=== PATIENT | female | born 1950 | race African-American/Black ===

== ENCOUNTER → 2019-06-12 | Outpatient (CLI) | payer MEDICARE, OTHER ==
[~2019-06-12] MED LIST: FLUP10TA11; HALO2TAB; LORA0.5T11; OLAN10TA23 PO; OLAN5TAB26 PO; SERT100T PO; SERT50TA PO; TEMA15CA91 PO
[2019-06-12 09:04] LABS: Basophils # (auto) 0 uL; Basophils % (auto) 0.7 % (0.0-2.0); Eosinophils # (auto) 0.1 uL; Eosinophils % (auto) 1.3 % (0.0-7.0); Hematocrit 41.1 % (36.0-46.0); Hemoglobin 13.6 g/dL (12.2-16.2); Lymphocytes # (auto) 3.1 uL; Lymphocytes % (auto) 48.7 % (10.0-50.0); Mean Corpuscular Hemoglobin 30.3 pg (28.0-32.0); Monocytes # (auto) 0.7 uL; Monocytes % (auto) 10.3 % (0.0-12.0); Neutrophils # (auto) 2.5 uL; Nucleated Red Blood Cells % 0.1 %; Platelet Count (auto) 239 10^3/uL (140-450); Red Blood Cells 4.47 10^6/uL (4.0-5.20); White Blood Cell 6.4 10^3/uL (4.4-10.8)
[2019-06-12 13:28] LABS: Potassium 4.1 mmol/L (3.5-5.1)
[2019-06-12 13:38] LABS: BUN/Creatinine Ratio 14.7; Calcium 8.9 mg/dL (8.5-10.1)
[2019-06-12 13:44] LABS: Albumin 3.4 g/dL (3.4-5.0); Bilirubin, Total 0.3 mg/dL (0.2-1.0); Total Protein 7.2 g/dL (6.4-8.2)
== END | disposition home or self-care (01) ==
LOC: LAB 08:16
PROVIDERS: ATTEND Physician Assistant
DX: F20.9 Schizophrenia, unspecified (principal); J40 Bronchitis, not specified as acute or chronic; Z87.898 Personal history of other specified conditions; R79.89 Other specified abnormal findings of blood chemistry
CPT/HCPCS: 36415; 80053; 80061; 85025

== ENCOUNTER → 2020-02-21 | Emergency (ER) | payer MEDICARE, OTHER ==
[~2020-02-21] VITALS: Ht 154.9 cm; Wt 65.8 kg
[~2020-02-21] MED LIST changes: +AMPI500C8 PO; +BENZ0.5T19 PO; +DIVA250T12 PO; -FLUP10TA11; -HALO2TAB; -LORA0.5T11; -OLAN10TA23 PO; +OLAN1TAB7 PO; -OLAN5TAB26 PO; -SERT100T PO; -SERT50TA PO; -TEMA15CA91 PO
== END | disposition home or self-care (01) ==
LOC: EDUNIT# 13:33 → EDBD 14:05 → ER 14:05
DX: F20.9 Schizophrenia, unspecified (principal)

== ENCOUNTER → 2020-02-23 | Emergency (ER) | payer MEDICARE, OTHER | END | disposition home or self-care (01) | LOC: ER 11:20 | DX: R41.0 Disorientation, unspecified (principal); I10 Essential (primary) hypertension; F20.9 Schizophrenia, unspecified; Z76.0 Encounter for issue of repeat prescription; Z79.899 Other long term (current) drug therapy ==

== ENCOUNTER 2020-05-21 10:15 | Emergency (ER) | payer MEDICARE, MEDICAID ==
[~2020-05-21] VITALS: Ht 157.5 cm; Wt 65.8 kg
[2020-05-21] MEDS ORDERED: diphenhdrAMINE HCL 50 MG/1 ML VL ONE (10:23)
[2020-05-21] MEDS ORDERED: HALOPERIDOL LACTATE 5 MG/ML INJ VIAL ONE (10:23)
[2020-05-21] MEDS ORDERED: LORazepam 2MG/ML-1ML VIAL ONE (10:23)
[2020-05-21] MEDS ORDERED: diphenhdrAMINE HCL 50 MG/1 ML VL IM ONE (10:45)
[2020-05-21] MEDS ORDERED: HALOPERIDOL LACTATE 5 MG/ML INJ VIAL IM ONE (10:45)
[2020-05-21] MEDS ORDERED: LORazepam 2MG/ML-1ML VIAL IM ONE ×2 (10:45→11:00)
[2020-05-22 07:31] VITALS: BP 141/95
== END 2020-05-23 07:47 | disposition short-term general hospital (02) ==
LOC: EDUNIT# 10:15 → EDBD 10:15 → ER 10:15
DX: F20.9 Schizophrenia, unspecified (principal); I10 Essential (primary) hypertension; F03.90 Unspecified dementia, unspecified severity, without behavioral disturbance, psychotic disturbance, mood disturbance, and anxiety; F41.9 Anxiety disorder, unspecified
CPT/HCPCS: 96372; 99284; C9803; J1200; J1630; J2060; U0003

== ENCOUNTER 2020-08-22 06:28 | Emergency (ER) | payer MEDICARE, OTHER ==
[~2020-08-22] VITALS: Ht 157.5 cm; Wt 54.4 kg
[2020-08-22] MEDS ORDERED: LORazepam 2MG/ML-1ML VIAL IM ONE ×2 (07:45→14:30)
[2020-08-22] MEDS ORDERED: HALOPERIDOL LACTATE 5 MG/ML INJ VIAL IM ONE ×2 (07:45→11:30)
[2020-08-22] MEDS ORDERED: diphenhdrAMINE HCL 50 MG/1 ML VL IM ONE (07:45)
[2020-08-22] MEDS ORDERED: OLANZapine 5 MG TAB PO ONE (11:15)
[2020-08-22] MEDS ORDERED: HALOPERIDOL LACTATE 5 MG/ML INJ VIAL ONE (11:28)
[2020-08-22 11:48] LABS: Urine Bacteria NONE SEEN /hpf (None Seen); Urine Blood Negative /uL (Negative); Urine Specific Gravity 1.005 (1.001-1.035); Urine WBC 9 /hpf (0 - 5)
[2020-08-22 12:27] LABS: Basophils # (auto) 0 10 ^3/uL (0-0.2); Basophils % (auto) 0.4 % (0.0-2.0); Eosinophils # (auto) 0 10 ^3/uL (0-0.8); Eosinophils % (auto) 0.2 % (0.0-7.0); Hematocrit 42.6 % (36.0-46.0); Hemoglobin 14.1 g/dL (12.2-16.2); Lymphocytes # (auto) 2.1 10 ^3/uL (0.4-5.4); Lymphocytes % (auto) 33.4 % (10.0-50.0); Mean Corpuscular Hemoglobin 30.4 pg (28.0-32.0); Mean Corpuscular Hgb Conc. 33.1 g/dL (32.0-36.0); Mean Corpuscular Volume 91.6 fL (80.0-100.0); Monocytes # (auto) 0.5 10 ^3/uL (0-1.3); Monocytes % (auto) 8.2 % (0.0-12.0); Neutrophils # (auto) 3.6 10 ^3/uL (1.6-8.6); Neutrophils % (auto) 57.8 % (37.0-80.0); Nucleated Red Blood Cells % 0.1 %; Platelet Count (auto) 262 10^3/uL (140-450); Red Blood Cells 4.65 10^6/uL (4.0-5.20); Red Cell Distribution Width 14.2 % (11.8-14.3); White Blood Cell 6.3 10^3/uL (4.4-10.8)
[2020-08-22 12:46] LABS: Albumin 3.6 g/dL (3.4-5.0); Calcium 9.1 mg/dL (8.5-10.1); Potassium 3.7 mmol/L (3.5-5.1)
[2020-08-22 12:50] LABS: Bilirubin, Total 0.3 mg/dL (0.2-1.0)
[2020-08-22] MEDS ORDERED: LORazepam 2MG/ML-1ML VIAL ONE (14:23)
[2020-08-23] MEDS ORDERED: LORazepam 2MG/ML-1ML VIAL ONE (09:32)
[2020-08-23] MEDS ORDERED: HALOPERIDOL LACTATE 5 MG/ML INJ VIAL IM ONE (09:45)
[2020-08-23] MEDS ORDERED: LORazepam 2MG/ML-1ML VIAL IM ONE (09:45)
== END 2020-08-23 11:02 ==
LOC: ER 06:28 → EDBD 06:28 → ER 08-23 11:02
DX: F23 Brief psychotic disorder (principal); E11.9 Type 2 diabetes mellitus without complications; F31.9 Bipolar disorder, unspecified; F41.0 Panic disorder [episodic paroxysmal anxiety]; F41.9 Anxiety disorder, unspecified; F03.90 Unspecified dementia, unspecified severity, without behavioral disturbance, psychotic disturbance, mood disturbance, and anxiety; Z91.19 Patient's noncompliance with other medical treatment and regimen; Z20.828 Contact with and (suspected) exposure to other viral communicable diseases
CPT/HCPCS: 36415; 80053; 81001; 85025; 87426; 96372; 99285; J1200; J1630; J2060

== ENCOUNTER 2021-01-05 13:06 | Emergency (ER) | payer MEDICARE, OTHER ==
[~2021-01-05] VITALS: Ht 162.6 cm; Wt 72.6 kg
[2021-01-05] MEDS ORDERED: HALOPERIDOL LACTATE 5 MG/ML INJ VIAL IM ONE (13:30)
[2021-01-05] MEDS ORDERED: diphenhdrAMINE HCL 50 MG/1 ML VL IM ONE (13:30)
[2021-01-05 16:17] LABS: Basophils # (auto) 0.1 10 ^3/uL (0-0.2); Basophils % (auto) 0.9 % (0.0-2.0); Eosinophils # (auto) 0 10 ^3/uL (0-0.8); Eosinophils % (auto) 0.2 % (0.0-7.0); Hematocrit 42.3 % (36.0-46.0); Hemoglobin 14.8 g/dL (12.2-16.2); Lymphocytes # (auto) 1.6 10 ^3/uL (0.4-5.4); Lymphocytes % (auto) 29.7 % (10.0-50.0); Mean Corpuscular Hemoglobin 31.3 pg (28.0-32.0); Mean Corpuscular Hgb Conc. 34.9 g/dL (32.0-36.0); Mean Corpuscular Volume 89.8 fL (80.0-100.0); Monocytes # (auto) 0.3 10 ^3/uL (0-1.3); Monocytes % (auto) 5.7 % (0.0-12.0); Neutrophils # (auto) 3.4 10 ^3/uL (1.6-8.6); Neutrophils % (auto) 63.5 % (37.0-80.0); Nucleated Red Blood Cells % 0.1 %; Platelet Count (auto) 297 10^3/uL (140-450); Red Blood Cells 4.72 10^6/uL (4.0-5.20); Red Cell Distribution Width 13.5 % (11.8-14.3); White Blood Cell 5.3 10^3/uL (4.4-10.8)
[2021-01-05 16:40] LABS: Albumin 3.7 g/dL (3.4-5.0); Anion Gap 8 (5-15); BUN/Creatinine Ratio 14.9; Blood Alcohol < 3.0 mg/dL (0-5); Blood Urea Nitrogen 10 mg/dL (7-18); Calcium 9.2 mg/dL (8.5-10.1); Carbon Dioxide 27 mmol/L (21-32); Chloride 108 mmol/L (98-107); GFR African American 112 mL/min; GFR Non-African American 92 mL/min; Glucose 84 mg/dL (74-106); Potassium 3.8 mmol/L (3.5-5.1); Sodium 143 mmol/L (136-145)
[2021-01-05 16:45] LABS: Alanine Aminotransferase 25 U/L (13-56); Alkaline Phosphatase 76 U/L (45-117); Aspartate Aminotransferase 28 U/L (15-37); Bilirubin, Total 0.5 mg/dL (0.2-1.0); Total Protein 7.8 g/dL (6.4-8.2)
[2021-01-05 22:59] LABS: Salicylate < 1.7 mg/dL (2.8-20.0)
[2021-01-05 23:00] LABS: Acetaminophen < 2.0 ug/mL (10-30)
[2021-01-06 06:05] LABS: Urine Bacteria FEW /hpf (None Seen); Urine Blood Negative /uL (Negative); Urine Mucus FEW (None Seen); Urine Specific Gravity 1.024 (1.001-1.035); Urine WBC 10 /hpf (0 - 5)
[2021-01-06 06:15] LABS: Alcohol, Urine < 3.0 mg/dL (0-10); Amphetamine Screen, Urine NEGATIVE (NEGATIVE); Barbiturate Scree,Urine NEGATIVE (NEGATIVE); Benzodiazephine Screen, Urine NEGATIVE (NEGATIVE); Cannabinoid Screen, Urine NEGATIVE (NEGATIVE); Cocaine Screen, Urine NEGATIVE (NEGATIVE); Opiate Scree,Urine NEGATIVE (NEGATIVE); Phencyclidine Screen, Urine NEGATIVE (NEGATIVE)
[2021-01-06] MEDS ORDERED: CIPROFLOXACIN HCL 500 MG TAB PO ONE (06:45)
== END 2021-01-06 13:37 ==
LOC: ER 13:06 → EDBD 13:06 → ER 01-06 13:37
DX: F20.9 Schizophrenia, unspecified (principal); I10 Essential (primary) hypertension; Z79.899 Other long term (current) drug therapy; Z20.822 Contact with and (suspected) exposure to COVID-19; Z90.49 Acquired absence of other specified parts of digestive tract
CPT/HCPCS: 36415; 80053; 80307; 80320; 80329; 81001; 85025; 87426; 96372; 99285; C9803; J1200; J1630; U0003